=== PATIENT | male | born 1980 | race Caucasian/White ===

== ENCOUNTER 2019-09-21 05:56 | Outpatient (CLI) | payer MEDICARE ==
[2019-09-21 13:08] LABS: Hemoglobin 14.4 g/dL (14.0-18.0); Mean Corpuscular HGB CONC 32.1 g/dL (32.0-36.0); Mean Corpuscular Hemoglobin 30.4 pg (27.0-31.0); Mean Corpuscular Volume 94.9 fL (78.0-98.0); Mean Platelet Volume 7.2 fL (7.4-10.4); Platelet Count 234 thou/uL (130-400); RBC Distribution Width 11.9 % (11.5-14.5); Red Blood Cell (RBC) Count 4.74 mill/uL (4.70-6.10)
== END 2019-09-21 05:57 | disposition home or self-care (01) ==
LOC: LABBT 05:56
PROVIDERS: ATTEND Neurological Surgery
DX: Z01.812 Encounter for preprocedural laboratory examination (principal); M50.00 Cervical disc disorder with myelopathy, unspecified cervical region
CPT/HCPCS: 85027

== ENCOUNTER 2019-09-24 10:29 | Day surgery (SDC) | payer MEDICARE ==
[2019-09-21 11:25] VITALS: BMI 22.9
--- NOTE | 2019-09-24 06:50 | HP ---
REASON FOR ADMISSION: "I am here to have my neck operated upon." HISTORY OF PRESENT ILLNESS: Mr. Hong Guallpa is a 39-year-old gentleman who came to our [facility] in June 2019 for difficulty with pain in the low back, sometimes radiating in the leg. However, he also noted fairly severe loss of balance. He had difficulty walking for a number of months, even years. He had numbness on the bottom of his feet, in his forearms and hands. He had, at the time, some loss of intrinsic hand strength. Imaging revealed cervical cord compression and he is here to have it decompressed. There is no loss of bowel or bladder control. His fingers are quite clumsy compared to when they were more normal a year or two ago. PAST MEDICAL HISTORY: Schizophrenia, anxiety, chronic pain, depression. MEDICATIONS: Invega Sustenna. PAST SURGICAL HISTORY: None. HOSPITALIZATION: [facility] hospitalization May 2018. FAMILY HISTORY: Father is alive. Mother is alive and has heart disease and cancer. SOCIAL HISTORY: Mr. Guallpa is a smoker and he tells me he quit prior to this operation. He does not use alcoholic beverages. Occasionally has smoked marijuana in the past. ALLERGIES: NO KNOWN DRUG ALLERGIES. REVIEW OF SYSTEMS: Review of symptoms otherwise negative. PHYSICAL EXAMINATION: GENERAL: Mr. Guallpa is 5 feet 10 inches tall, weighs 165 pounds. NEUROLOGIC: His cranial nerves are intact. In the upper extremities, there is slight weakness in the extensors including the triceps, the wrist extensors, and the finger extensors. There was more marked and objective weakness in the dorsal interossei. On sensory examination, there is decreased sensation to touch, pain, and temperature in the forearms and hands in a nondermatomal distribution. Reflexes are pathologically brisk reflexes at the knees and ankles. There is 1 to 2 beats of clonus on both sides. IMAGING FINDINGS: MRI images revealed cord compression at C5-C6 with T2 signal change in the substance of the spinal cord. 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 PLAN: We offered an operation to Mr. Guallpa to decompress his cord. We are planning an ACDF at C5-C6. Informed consent. We discussed, in the office, the indications, risks, benefits, alternatives, and expected outcomes from surgery. The risks we discussed included, but were not limited to, bleeding, infection, CSF leak, nerve damage, weakness, swallowing trouble, feeding tube placement, tracheal injury, esophageal injury, vocal cord injury, spinal cord injury, incontinence, paralysis, ventilator dependence, wheelchair dependence, stroke, loss of vision, carotid artery injury, jugular vein injury, hardware misplacement, cardiopulmonary complications of anesthesia, and . Long-term complications discussed included, but were not limited to, hardware failure, and degeneration of surrounding disks. He understands the risks and is willing to proceed. We will take Mr. Guallpa to the operating room for ACDF. Job ID: [id number]
[~2019-09-24 10:29] MED LIST: Dexamethasone 20 MG/5 ML VIAL ONE; Glycopyrrolate 0.2 MG/ML 5 ML SYRINGE ONE; Ketorolac Tromethamine 30 MG/ML VIAL ONE; Lidocaine 1% PF 5 ML VIAL ONE; Metoclopramide HCl 10 MG/2 ML VIAL ONE; Ondansetron PF 4 MG/2 ML Vial ONE; PHENYLEPHRINE-NS 100 MCG/ML 10 ML SYRINGE ONE; PROPOFOL 200 MG/20 ML VIAL ONE; Rocuronium Bromide 10 MG/ML (10ML VIAL) ONE
[2019-09-24 11:17] LABS: INR-International Normal Ratio 0.9; PTT 27.5 SEC (22.9-36.1); Prothrombin Time 11.9 SEC (12.0-14.7)
[2019-09-24] MEDS ORDERED: Fentanyl 250 MCG/5 ML VIAL ONE (11:28)
[2019-09-24] MEDS ORDERED: Sodium Chloride 0.9% 10 ML ONE (11:47)
[2019-09-24] MEDS ORDERED: Thrombin 5000 UNITS/5 ML VIAL ONE (11:47)
[2019-09-24] MEDS ORDERED: Paliperidone Palmitate [Invega Sustenna] 156 MG IM SCH (14:45)
--- NOTE | 2019-09-24 14:46 | OP ---
DATE OF PROCEDURE: 09/24/2019 EMBROIDERY SUPERVISOR: None. PREOPERATIVE INDICATION: Prevent neurological deterioration. PREOPERATIVE DIAGNOSIS: Cervical intervertebral disk disease with cord compression and myelopathy. POSTOPERATIVE DIAGNOSIS: Cervical intervertebral disk disease with cord compression and myelopathy. PROCEDURES PERFORMED: Anterior cervical diskectomy, C5-C6; intervertebral arthrodesis, C5-C6; placement of intervertebral biomechanical device, C5-C6; anterior cervical plating, C5-C6; local morselized autograft, morselized allograft, and operating microscope. PREOPERATIVE MEDICATIONS: Ancef 2 g IV. DRAINS NUMBER: Zero. DRAIN TYPE: None. DESCRIPTION OF PROCEDURE: The patient was brought to the operating room. General endotracheal anesthesia was induced. Keeping the neck in normal anatomic alignment, we carefully positioned him on the operating table with his head supported by a donut-shaped headrest. A lateral fluoro radiograph was used to plan our incision. The right side of the neck was sterilely prepped and draped. We opened with a 10 blade knife and we controlled bleeding with bipolar cautery. We dissected sharply to the platysma and cut this muscle in line with our incision. We continued our dissection medial to the sternocleidomastoid and lateral to the trachea and esophagus. We arrived to the prevertebral space. We placed a marker at C5-C6 and took a lateral fluoro radiograph to confirm the level upon, which we were operating. We then elevated the longus colli muscles off the anterior surface of the spine at C5 and C6 and placed a self-retaining retractor beneath these muscles. Distraction pins were placed in both of C5 and C6 and we distracted across the intervening interspace. We incised that interspace with a 15 blade knife and removed disk contents using curettes and rongeurs. The operating microscope was brought into the field. Under microscopic magnification and using microsurgical techniques, we removed the remainder of the intervertebral disk. We accessed the ventral epidural space with a micro curette, passed behind the posterior longitudinal ligament. Using a 1-mm Kerrison rongeur, we removed the posterior longitudinal ligament and posterior osteophytes off the C5 and C6 vertebral bodies until we had decompressed the dura from one neural foramen across the entire interspace to the other neural foramen. The dura was nicely decompressed. We then turned our attention to arthrodesis. Using curettes, we prepared the endplates for grafting. A bone rasp measuring 8 mm was brought in and used to prepare the endplates for grafting as well. An 8-mm PEEK intervertebral biomechanical device was brought into the field. The bone removed during our osteophytectomy was cleaned of soft tissue attachments, morcellized and added into demineralized bone matrix as our fusion substrate. The substrate was packed into the center of the PEEK graft and that graft was advanced into the interspace under radiographic guidance to the appropriate depth. We then removed the operating microscope. The distraction pins were removed. A 14-mm plate was brought into the field. We drilled tray service worker holes through the plate into the vertebral bodies at C5 and C6 and we affixed the plate with 14 and 16 mm screws. We engaged the locking mechanism over each of the 4 screws. Fixed angle screws were used at C6 and variable angle screws at C5. AP and lateral fluoro radiographs confirmed adequate positioning of our instrumentation. We irrigated copiously with bacitracin irrigation. We closed the wound in anatomical layers and we applied a sterile dressing. This was a clean case, no contamination. Job ID: [id number]
[2019-09-24] MEDS ORDERED: Fentanyl 100 MCG/2 ML VIAL ONE (14:56)
[2019-09-24] MEDS ORDERED: HYDROcodone/Acetaminophen 5/325 mg Tablet ONE (16:50)
[2019-09-24] MEDS ORDERED: Ondansetron ODT 4 MG TAB ONE (17:09)
== END 2019-09-24 19:46 | disposition home or self-care (01) ==
LOC: SDC 10:29
PROVIDERS: ATTEND Neurological Surgery
PROC: 0RG10A0 Fusion of Cervical Vertebral Joint with Interbody Fusion Device, Anterior Approach, Anterior Column, Open Approach (ICD-10-PCS; principal; 2019-09-24)
PROC: 0RT30ZZ Resection of Cervical Vertebral Disc, Open Approach (ICD-10-PCS; 2019-09-24)
DX: M50.022 Cervical disc disorder at C5-C6 level with myelopathy (principal); M47.12 Other spondylosis with myelopathy, cervical region; F20.9 Schizophrenia, unspecified; F41.9 Anxiety disorder, unspecified; G89.29 Other chronic pain; F32.9 Major depressive disorder, single episode, unspecified; Z87.891 Personal history of nicotine dependence; Z79.899 Other long term (current) drug therapy
CPT/HCPCS: 20930; 20936; 22551; 22845; 22853; 85610; 85730; C1713; C1776; J0690; J1100; J1885; J2001; J2405; J2704; J2765; J3010; J3490; Q0162

== ENCOUNTER 2025-09-13 15:56 | Emergency (ER) | payer MEDICARE ==
[2025-09-13] MEDS ORDERED: Ketorolac Tromethamine 30 MG (1 mL) VIAL ONE (19:36)
[2025-09-13] MEDS ORDERED: Ondansetron PF 4 MG/2 ML Vial ONE (19:36)
== END 2025-09-13 21:27 | disposition home or self-care (01) ==
LOC: ERS 15:56
DX: S32.402A Unspecified fracture of left acetabulum, initial encounter for closed fracture (principal); S32.592A Other specified fracture of left pubis, initial encounter for closed fracture; F17.210 Nicotine dependence, cigarettes, uncomplicated; W01.0XXA Fall on same level from slipping, tripping and stumbling without subsequent striking against object, initial encounter
CPT/HCPCS: 72131; 72192; 73502; J1885; J2270; J2405; 96374; 96375